=== PATIENT | female | born 1980 | race African-American/Black ===

== ENCOUNTER 2018-03-09 11:46 | Inpatient (IN) | payer OTHER ==
[2018-03-09 12:51] VITALS: BMI 27.8
--- NOTE | 2018-03-09 14:06 | HP ---
CIWA Score Nausea/Vomitin-No Nausea/No Vomiting Muscle Tremors: 2 Anxiety: 4-Mod. Anxious/Guarded Agitation: 4-Moderately Restless Paroxysmal Sweats: No Perspiration Orientation: 2-Disoriented Date<2 days Tacttile Disturbances: 0-None Auditory Disturbances: 0-None Visual Disturbances: 0-None Headache: 0-None Present CIWA-Ar Total Score: 12 - Admission Criteria OASAS Guidelines: Admission for Medically Managed Detox: Requires at least one of the followin. CIWA greater than 12 2. Seizures within the past 24 hours 3. Delirium tremens within the past 24 hours 4. Hallucinations within the past 24 hours 5. Acute intervention needed for co occurring medical disorder 6. Acute intervention needed for co occurring psychiatric disorder 7. Severe withdrawal that cannot be handled at a lower level of care (continued vomiting, continued diarrhea, abnormal vital signs) requiring intravenous medication and/or fluids 8. Admission ROS [facility] Chief Complaint: ETOH WITHDRAWAL AND COCAINE DEPENDENCE. Allergies/Adverse Reactions: Allergies Allergy/AdvReac Type Severity Reaction Status Date / Time aspirin Allergy Verified 03/09/18 13:55 latex Allergy Verified 03/09/18 13:55 peanut Allergy Verified 03/09/18 13:55 History of Present Illness: PATIENT PRESENTS WITH ETOH WITHDRAWAL SX AND H/O COCAINE DEPENDENCE. PATIENT STARTED DRINKING AT AGE 22, DRINKS UP TO 2 BOTTLES WINE DAILY. LAST DRINK LAST NIGHT. PATIENT LONGEST PERIOD OF SOBRIETY 6 MONTHS. PATIENT REPORTS BINGE DRINKING. DENIES SEIZURES, FALLS AND BLACKOUTS. PATIENT ALSO SMOKES CRACK/ COCAINE, LAST TIME SHE SMOKED WAS 3 WEEKS AGO BUT REPORTS SHE BINGES FOR DAYS WHEN SHE DOES SMOKE. UDS +BZO PATIENT WENT TO ER AT [facility] LAST NIGHT. PMH INCLUDES BIPOLAR DISORDER, HTN AND ANXIETY. DENIES SI/HI TODAY. + SUICIDE ATTEMPT 3 WEEKS AGO- CUTTING WRISTS. Exam Limitations: No Limitations - Ebola screening Have you traveled outside of the country in the last 21 days: No (N) Have you had contact with anyone from an Ebola affected area: No Have you been sick,other than usual withdrawal symptoms: No Do you have a fever: No - Review of Systems Constitutional: Chills EENT: reports: Tearing, Nose Congestion Respiratory: reports: Cough (DRY COUGH) Cardiac: reports: No Symptoms Reported GI: reports: Poor Fluid Intake : reports: No Symptoms Reported Musculoskeletal: reports: Back Pain, Muscle Pain Integumentary: reports: No Symptoms Reported Neuro: reports: Tremors Endocrine: reports: No Symptoms Reported Hematology: reports: Anemia Psychiatric: reports: Anxious (UNSURE OF DATE.), Depressed Patient History - Patient Medical History Hx Anemia: Yes Hx Asthma: Yes Hx Chronic Obstructive Pulmonary Disease (COPD): No Hx Cancer: No Hx Cardiac Disorders: No Hx Congestive Heart Failure: No Hx Hypertension: Yes Hx Hypercholesterolemia: No Hx Pacemaker: No HX Cerebrovascular Accident: No Hx Seizures: No Hx Dementia: No Hx Diabetes: No Hx Gastrointestinal Disorders: No Hx Liver Disease: No Hx Genitourinary Disorders: No Hx Sexually Transmitted Disorders: No Hx Renal Disease (ESRD): No Hx Thyroid Disease: No Hx Human Immunodeficiency Virus (HIV): No Hx Hepatitis C: No Hx Depression: Yes Hx Suicide Attempt: Yes (3 WEEKS AGO BY CUTTING WRISTS) Hx Bipolar Disorder: Yes Hx Schizophrenia: No - Patient Surgical History Past Surgical History: Yes Hx Abdominal Surgery: Yes ( GASTRIC BYPASS 2013) Other Surgical History: TONSILLECTOMY Anesthesia Reaction: No - PPD History Previous Implant?: No Implanted On Prior R Admission?: No PPD to be Administered?: Yes - Reproductive History Patient is a Female of Child Bearing Age (11 -55 yrs old): Yes Patient : No - Smoking Cessation Smoking history: Current every day smoker Have you smoked in the past 12 months: Yes Aproximately how many cigarettes per day: 2 Hx Chewing Tobacco Use: No Initiated information on smoking cessation: Yes 'Breaking Loose' booklet given: 03/09/18 - Substance & Tx. History Hx Alcohol Use: Yes Hx Substance Use: Yes Substance Use Type: Alcohol, Cocaine Hx Substance Use Treatment: No - Substances Abused Alcohol Route: Oral Frequency: Daily Amount used: 1 BOTTLE OF WINE Age of first use: 15 Date of Last Use: 03/09/18 Cocaine Route: Smoking Frequency: 1-3 times last 30 days Amount used: VARIES Age of first use: 36 Date of Last Use: 02/17/18 Family Disease History - Family Disease History Family Disease History: Diabetes: Mother, Heart Disease: Father Admission Physical Exam BHS - Vital Signs Vital Signs: Vital Signs - 24 hr 03/09/18 12:48 Temperature 96 F L Pulse Rate 86 Respiratory 20 Rate Blood Pressure 165/106 H - Physical General Appearance: Yes: No Apparent Distress, Nourished, Appropriately Dressed , Tremorous, Anxious HEENTM: Yes: EOMI, Hearing grossly Normal, Normocephalic, Normal Voice, SHANTI, Pharynx Normal, Nasal Congestion Respiratory: Yes: Chest Non-Tender, Lungs Clear, Normal Breath Sounds, No Respiratory Distress, No Accessory Muscle Use Neck: Yes: No masses,lesions,Nodules, Supple, Trachea in good position Breast: Yes: Breast Exam Deferred Cardiology: Yes: Regular Rhythm, Regular Rate, S1, S2 Abdominal: Yes: Normal Bowel Sounds, Non Tender, Soft Genitourinary: Yes: Within Normal Limits Back: Yes: Normal Inspection, Muscle Spasm Musculoskeletal: Yes: full range of Motion, Gait Steady, Muscle Pain Extremities: Yes: Normal Inspection, Normal Range of Motion, Non-Tender, Tremors Neurological: Yes: branch chief II-XII NML intact, Alert, Motor Strength 5/5, Disoriented (UNSURE OF DATE), Depressed Affect Integumentary: Yes: Normal Color, Dry, Warm Lymphatic: Yes: Within Normal Limits - Diagnostic (1) Alcohol dependence with uncomplicated withdrawal Current Visit: Yes Status: Acute (2) Cocaine dependence Current Visit: Yes Status: Chronic Qualifiers: Substance use status: uncomplicated Qualified Code(s): F14.20 - Cocaine dependence, uncomplicated (3) Bipolar disorder Current Visit: Yes Status: Suspected Qualifiers: Current episode severity: unspecified (4) HTN (hypertension) Current Visit: Yes Status: Chronic Qualifiers: Hypertension type: unspecified Qualified Code(s): I10 - Essential (primary ) hypertension Cleared for Admission [facility] - Detox or Rehab [facility] Level of Care: Medically Managed Detox Regimen/Protocol: Librium [facility] Breath Alcohol Content Breath Alcohol Content: 0.054 Urine Pregancy Test - Result Urine Test Results: Negative- NO Line Present Urine Drug Screen - Results Drug Screen Negative: No Urine Drug Screen Results: BZO-Benzodiazepines
[2018-03-09] MEDS ORDERED: guaiFENesin/D-METHORPHAN HB 10 ML UNIT-DOSE CUPS PO PRN (14:17)
[2018-03-09] MEDS ORDERED: IBUPROFEN 400 MG TABLET (FP) PO PRN (14:17)
[2018-03-09] MEDS ORDERED: MAGNESIUM HYDROX 2400MG/30ML ORAL SUSPENSION 30 ML CUP PO PRN (14:17)
[2018-03-09] MEDS ORDERED: ACETAMINOPHEN 325 MG TABLET (FP) PO PRN ×2 (14:17→16:58)
[2018-03-09] MEDS ORDERED: MENTHOL/PHENOL 1 EACH UD MM PRN (14:17)
[2018-03-09] MEDS ORDERED: P-EPHED 60MG/TRIPROLIDI 2.5MG TABLET PO PRN (14:17)
[2018-03-09] MEDS ORDERED: LOPERAMIDE HCL 2 MG CAPSULE PO PRN (14:17)
[2018-03-09] MEDS ORDERED: MAGNESIUM CITRATE 300 ML BOTTLE PO PRN (14:17)
[2018-03-09] MEDS ORDERED: chlordiazePOXIDE HCL 25 MG CAPSULE PO PRN (14:20)
[2018-03-09] MEDS ORDERED: cloNIDine HCL 0.1 MG TABLET PO ONE (17:00)
[2018-03-09] MEDS: chlordiazePOXIDE HCL 25 MG CAPSULE PO SCH ×2 (20:22→22:18)
[2018-03-09] MEDS: THIAMINE HCL 100 MG TABLET (FP) PO SCH (22:18)
[2018-03-09 23:05] LABS: URINE APPEARANCE CLEAR; URINE BILIRUBIN NEGATIVE (<2.0 mg/dL); URINE COLOR LTYELLOW; URINE GLUCOSE (UA) NEGATIVE (NEGATIVE); URINE KETONE NEGATIVE (NEGATIVE); URINE LEUK ESTERASE NEGATIVE (NEGATIVE); URINE NITRITE NEGATIVE (NEGATIVE); URINE PROTEIN NEGATIVE (NEGATIVE); URINE UROBILINOGEN NEGATIVE mg/dL (0.2-1.0)
[2018-03-10] MEDS: chlordiazePOXIDE HCL 25 MG CAPSULE PO SCH ×4 (06:02→22:05)
[2018-03-10] MEDS: PRENATAL VITAMINS W/ FOLIC ACID TABLET (FP) PO SCH (10:39)
[2018-03-10] MEDS ORDERED: ALBUTEROL SO4 8 GM HFA INHALER IH PRN (10:49)
[2018-03-10] MEDS ORDERED: LOSARTAN POTASSIUM 50 MG TABLET (FP) PO ONE (10:50)
--- NOTE | 2018-03-10 10:54 | PN ---
S CIWA - CIWA Score Nausea/Vomitin-No Nausea/No Vomiting Muscle Tremors: 4-Moderate,w/Arms Extend Anxiety: 4-Mod. Anxious/Guarded Agitation: 4-Moderately Restless Paroxysmal Sweats: 3 Orientation: 0-Oriented Tacttile Disturbances: 0-None Auditory Disturbances: 0-None Visual Disturbances: 0-None Headache: 0-None Present CIWA-Ar Total Score: 15 BHS Progress Note (SOAP) Subjective: shakes sweats irritable agitation body aches interrupted sleep nasal congestion Objective: 03/10/18 10:52 Vital Signs Temperature 97.0 F L 03/10/18 09:54 Pulse Rate 122 H 03/10/18 09:54 Respiratory Rate 16 03/10/18 09:54 Blood Pressure 142/94 03/10/18 09:54 O2 Sat by Pulse Oximetry (%) Laboratory Tests 03/09/18 22:30 Urine Color Ltyellow Urine Appearance Clear Urine pH 5.0 Ur Specific [place] 1.011 Urine Protein Negative Urine Glucose (UA) Negative Urine Ketones Negative Urine Blood Negative Urine Nitrite Negative Urine Bilirubin Negative Urine Urobilinogen Negative Ur Leukocyte Esterase Negative rest of labs pending aaox3 ambulating no acute distress Assessment: 03/10/18 10:52 withdrawal sx Plan: continue detox increase fluids flonase spray losartan 100mg daily
[2018-03-10 10:56] LABS: HEMATOCRIT 33.4 % (32.4-45.2); HEMOGLOBIN 11.3 GM/dL (10.7-15.3); MCH 31.7 pg (25.7-33.7); MCHC 33.7 g/dl (32.0-36.0); MEAN PLT VOLUME 7.8 fl (7.5-11.1); PLATELET COUNT 346 K/MM3 (134-434); RBC 3.55 M/mm3 (3.60-5.2); RDW 14.6 % (11.6-15.6); WHITE BLOOD COUNT 7.6 K/mm3 (4.0-10.0)
[2018-03-10 11:00] LABS: ALK PHOS 81 U/L (45-117); ANION GAP 9 MMOL/L (8-16); BILIRUBIN,TOTAL 0.4 mg/dL (0.2-1); BLOOD UREA NITROGEN 12 mg/dL (7-18); CALCIUM 8.2 mg/dL (8.5-10.1); CHLORIDE 109 mmol/L (98-107); CO2 24 mmol/L (21-32); CREATININE 0.7 mg/dL (0.55-1.3); GLUCOSE,RANDOM 62 mg/dL (74-106); POTASSIUM 3.9 mmol/L (3.5-5.1); SGOT/AST 14 U/L (15-37); SGPT/ALT 19 U/L (13-61); SODIUM 141 mmol/L (136-145)
--- NOTE | 2018-03-10 11:38 | CONSULT ---
[facility] Psychiatric Consult - Data Date of interview: 03/10/18 Admission source: [facility] Identifying data: Patient is a 37 year old single female, without children, unemployed, and currently residing with her mother. This is patient's first admission to detox at [facility]. Patient admitted to for alcohol dependence. Substance Abuse History: Smoking Cessation. Smoking history: Current every day smoker. Have you smoked in the past 12 months: Yes. Aproximately how many cigarettes per day: 2. Hx Chewing Tobacco Use: No. Initiated information on smoking cessation: Yes. 'Breaking Loose' booklet given: 03/09/18. - Substance & Tx. History. Hx Alcohol Use: Yes. Hx Substance Use: Yes. Substance Use Type : Alcohol, Cocaine. Hx Substance Use Treatment: No. - Substances Abused. Alcohol. Route: Oral. Frequency: Daily. Amount used: 1 BOTTLE OF WINE. Age of first use: 15. Date of Last Use: 03/09/18. Cocaine. Route: Smoking. Frequency: 1-3 times last 30 days. Amount used: VARIES. Age of first use: 36. Date of Last Use: 02/17/18 Medical History: Anemia, asthma, hypertersion Psychiatric History: Patient's first psychiatric contact was as a [age] year old. States she saw a psychiatrist with her dad and family due to her father's history of alcohol abuse. Ms. Chavez first psychiatric hospitalization was as a 13 year old at [facility] after a suicide attempt. As an adult, she has been hospitalized at [facility], most recently in August of 2016 secondary to a suicide attempt. Ms. Chavez reports a total of three suicide attempts by hanging self, self mutilation, and running onto incoming traffic. Self diagnosis of Bipolar disorder. Ms. Chavez was receiving outpatient psychiatric care by Dr. Schulz at the [facility] outpatient clinic but treatment was discontined after patient relocated to [facility]. She now plans on returning to [facility] outpatient clinic as she is currently residing with her mother in the [place], [place]. She was prescribed lexapro 10mg + Abilify 10mg. At present, she reports feeling sad. Patient denies thoughts or urges to hurt self or others. Physical/Sexual Abuse/Trauma History: denies. Mental Status Exam - Mental Status Exam Alert and Oriented to: Time, Place, Person Cognitive Function: Good Patient Appearance: Well Groomed Mood: Sad Affect: Mood Congruent Patient Behavior: Appropriate, Cooperative Speech Pattern: Appropriate Voice Loudness: Normal Thought Process: Intact, Goal Oriented Thought Disorder: Not Present Hallucinations: Denies Suicidal Ideation: Denies Homicidal Ideation: Denies Insight/Judgement: Poor Sleep: Fair Appetite: Fair Muscle strength/Tone: Normal Gait/Station: Normal Psychiatric Findings - Problem List ([place] 1, 2,3) (1) Alcohol dependence with uncomplicated withdrawal Current Visit: Yes Status: Acute (2) Bipolar disorder Current Visit: Yes Status: Chronic Qualifiers: Current episode severity: unspecified (3) Substance induced mood disorder Current Visit: Yes Status: Acute - Initial Treatment Plan Initial Treatment Plan: Psychoeducation provided. Detoxification in progress. Will order Lexapro 10mg + Abilify 10mg. Benefits and side effects discussed. Verbal consent given.
[2018-03-10] MEDS: FLUTICASONE PROP 0.05% 16 GM NASAL SPRAY NS SCH ×2 (11:56→22:05)
[2018-03-10] MEDS: ARIPiprazole 10 MG TABLET PO SCH (12:02)
[2018-03-10] MEDS: ESCITALOPRAM OXALATE 10 MG TABLET (FP) PO SCH (12:02)
--- NOTE | 2018-03-10 17:04 | EKG ---
Test Reason : Blood Pressure : / mmHG Vent. Rate : 095 BPM Atrial Rate : 095 BPM P-R Int : 144 ms QRS Dur : 084 ms QT Int : 362 ms P-R-T Axes : -07 012 025 degrees QTc Int : 454 ms NORMAL SINUS RHYTHM NORMAL ECG NO PREVIOUS ECGS AVAILABLE Confirmed by MD SANDEEP, BEN ([id number]) on 03/10/2018 5:04:40 PM Referred By: Confirmed By:BEN HOPKINS MD
[2018-03-10] MEDS: MAG HYDROX/AL HYDROX/SIMETH 30 ML UNIT-DOSE CUP PO PRN (17:43)
[2018-03-10] MEDS: MELATONIN 5 MG TABLETS PO PRN (22:05)
[2018-03-10] MEDS: THIAMINE HCL 100 MG TABLET (FP) PO SCH (22:05)
[2018-03-10] MEDS: hydrOXYzine PAMOATE 50 MG CAPSULE (FP) PO PRN (22:05)
[2018-03-11] MEDS: chlordiazePOXIDE HCL 25 MG CAPSULE PO SCH ×2 (06:29→10:37)
[2018-03-11] MEDS: PRENATAL VITAMINS W/ FOLIC ACID TABLET (FP) PO SCH (10:36)
[2018-03-11] MEDS: ARIPiprazole 10 MG TABLET PO SCH (10:37)
[2018-03-11] MEDS: FLUTICASONE PROP 0.05% 16 GM NASAL SPRAY NS SCH ×2 (10:37→22:09)
[2018-03-11] MEDS: LOSARTAN POTASSIUM 50 MG TABLET (FP) PO SCH (10:37)
[2018-03-11] MEDS: ESCITALOPRAM OXALATE 10 MG TABLET (FP) PO SCH (10:37)
--- NOTE | 2018-03-11 10:40 | PN ---
[facility] CIWA - CIWA Score Nausea/Vomitin-No Nausea/No Vomiting Muscle Tremors: 3 Anxiety: 3 Agitation: 2 Paroxysmal Sweats: 2 Orientation: 0-Oriented Tacttile Disturbances: 0-None Auditory Disturbances: 0-None Visual Disturbances: 0-None Headache: 0-None Present CIWA-Ar Total Score: 10 S Progress Note (SOAP) Subjective: tired body aches interrupted sleep sweats Objective: 03/11/18 10:38 Vital Signs Temperature 97.3 F L 03/11/18 09:27 Pulse Rate 95 H 03/11/18 09:27 Respiratory Rate 137 H 03/11/18 09:27 Blood Pressure 131/93 03/11/18 09:27 O2 Sat by Pulse Oximetry (%) Laboratory Tests 03/09/18 03/10/18 03/10/18 22:30 07:00 07:00 WBC 7.6 RBC 3.55 L Hgb 11.3 Hct 33.4 MCV 94.0 MCH 31.7 MCHC 33.7 RDW 14.6 Plt Count 346 MPV 7.8 Sodium 141 Potassium 3.9 Chloride 109 H Carbon Dioxide 24 Anion Gap 9 BUN 12 Creatinine 0.7 Creat Clearance w eGFR > 60 Random Glucose 62 L Calcium 8.2 L Total Bilirubin 0.4 AST 14 L ALT 19 Alkaline Phosphatase 81 Total Protein 6.0 L Albumin 3.0 L Urine Color Ltyellow Urine Appearance Clear Urine pH 5.0 Ur Specific [place] 1.011 Urine Protein Negative Urine Glucose (UA) Negative Urine Ketones Negative Urine Blood Negative Urine Nitrite Negative Urine Bilirubin Negative Urine Urobilinogen Negative Ur Leukocyte Esterase Negative RPR Titer HIV 1&2 Antibody Screen HIV P24 Antigen 03/10/18 03/10/18 07:00 07:00 WBC RBC Hgb Hct MCV MCH MCHC RDW Plt Count MPV Sodium Potassium Chloride Carbon Dioxide Anion Gap BUN Creatinine Creat Clearance w eGFR Random Glucose Calcium Total Bilirubin AST ALT Alkaline Phosphatase Total Protein Albumin Urine Color Urine Appearance Urine pH Ur Specific [place] Urine Protein Urine Glucose (UA) Urine Ketones Urine Blood Urine Nitrite Urine Bilirubin Urine Urobilinogen Ur Leukocyte Esterase RPR Titer Nonreactive HIV 1&2 Antibody Screen Negative HIV P24 Antigen Negative aaox3 ambulating no acute distress Assessment: 03/11/18 10:39 withdrawal sx Plan: continue detox increase fluids
[2018-03-11] MEDS: chlordiazePOXIDE 5 MG CAPSULE PO SCH ×2 (16:52→22:10)
[2018-03-11] MEDS: ACETAMINOPHEN 325 MG TABLET (FP) PO PRN (19:24)
[2018-03-11] MEDS: THIAMINE HCL 100 MG TABLET (FP) PO SCH (22:09)
[2018-03-11] MEDS: hydrOXYzine PAMOATE 50 MG CAPSULE (FP) PO PRN (22:10)
[2018-03-11] MEDS: MELATONIN 5 MG TABLETS PO PRN (22:10)
[2018-03-12] MEDS: chlordiazePOXIDE 5 MG CAPSULE PO SCH ×2 (06:04→10:01)
[2018-03-12] MEDS: LOSARTAN POTASSIUM 50 MG TABLET (FP) PO SCH (10:01)
[2018-03-12] MEDS: ARIPiprazole 10 MG TABLET PO SCH (10:01)
[2018-03-12] MEDS: PRENATAL VITAMINS W/ FOLIC ACID TABLET (FP) PO SCH (10:01)
[2018-03-12] MEDS: FLUTICASONE PROP 0.05% 16 GM NASAL SPRAY NS SCH ×2 (10:02→22:02)
[2018-03-12] MEDS: ESCITALOPRAM OXALATE 10 MG TABLET (FP) PO SCH (10:02)
--- NOTE | 2018-03-12 11:06 | PN ---
BHS Progress Note (SOAP) Subjective: tired Objective: 03/12/18 11:06 Vital Signs Temperature 97.3 F L 03/12/18 09:17 Pulse Rate 94 H 03/12/18 09:17 Respiratory Rate 16 03/12/18 09:17 Blood Pressure 132/70 03/12/18 09:17 O2 Sat by Pulse Oximetry (%) aaox3 ambulating no acute distress Assessment: 03/12/18 11:06 mild withdrawal sx Plan: continue detox increase fluids d/c in am
[2018-03-12] MEDS: ACETAMINOPHEN 325 MG TABLET (FP) PO PRN ×2 (11:08→20:53)
[2018-03-12] MEDS: chlordiazePOXIDE HCL 10 MG CAPSULE PO SCH ×2 (16:54→22:03)
[2018-03-12] MEDS: MAG HYDROX/AL HYDROX/SIMETH 30 ML UNIT-DOSE CUP PO PRN (20:54)
[2018-03-12] MEDS: THIAMINE HCL 100 MG TABLET (FP) PO SCH (22:03)
[2018-03-12] MEDS: MELATONIN 5 MG TABLETS PO PRN (22:03)
[2018-03-12] MEDS: hydrOXYzine PAMOATE 50 MG CAPSULE (FP) PO PRN (22:03)
[2018-03-13] MEDS: chlordiazePOXIDE HCL 10 MG CAPSULE PO SCH ×2 (05:43→10:40)
[2018-03-13 09:59] VITALS: BP 151/98; PULSE 94; TEMP 96.8
--- NOTE | 2018-03-13 10:16 | DS ---
[facility] Detox Discharge Summary Admission Date: 03/09/18 Discharge Date: 03/13/18 - History Present History: Alcohol Dependence, Cocaine Dependence - Physical Exam Results Vital Signs: Vital Signs Temperature 96.8 F L 03/13/18 09:58 Pulse Rate 94 H 03/13/18 09:58 Respiratory Rate 18 03/13/18 09:58 Blood Pressure 151/98 03/13/18 09:58 O2 Sat by Pulse Oximetry (%) - Treatment Hospital Course: Detox Protocol Followed, Detoxed Safely, Responded well, Discharged Condition Good, Rehab Referral Accepted - Medication Discharge Medications: Ambulatory Orders Albuterol Sulfate Inhaler - [Ventolin Hfa Inhaler -] 2 inh PO Q6H PRN 03/09/18 Ferrous Sulfate 325 mg PO DAILY 03/09/18 Escitalopram Oxalate [Lexapro -] 10 mg PO DAILY 03/10/18 Aripiprazole [Abilify] 10 mg PO DAILY #30 tablet 03/12/18 Escitalopram Oxalate [Lexapro -] 10 mg PO DAILY #30 tablet 03/12/18 - Diagnosis (1) Alcohol dependence with uncomplicated withdrawal Current Visit: Yes Status: Acute (2) Substance induced mood disorder Current Visit: Yes Status: Acute (3) Bipolar disorder Current Visit: Yes Status: Chronic Qualifiers: Current episode severity: unspecified (4) Cocaine dependence Current Visit: Yes Status: Chronic Qualifiers: Substance use status: uncomplicated Qualified Code(s): F14.20 - Cocaine dependence, uncomplicated (5) HTN (hypertension) Current Visit: Yes Status: Chronic Qualifiers: Hypertension type: unspecified Qualified Code(s): I10 - Essential (primary ) hypertension - AMA Did Patient Leave Against Medical Advice: No (referred to [facility])
[2018-03-13] MEDS: ESCITALOPRAM OXALATE 10 MG TABLET (FP) PO SCH (10:39)
[2018-03-13] MEDS: ARIPiprazole 10 MG TABLET PO SCH (10:39)
[2018-03-13] MEDS: PRENATAL VITAMINS W/ FOLIC ACID TABLET (FP) PO SCH (10:39)
[2018-03-13] MEDS: LOSARTAN POTASSIUM 50 MG TABLET (FP) PO SCH (10:39)
[2018-03-13] MEDS: FLUTICASONE PROP 0.05% 16 GM NASAL SPRAY NS SCH (10:40)
== END 2018-03-13 11:40 | disposition home or self-care (01) | DRG 774 ==
LOC: YASAS 11:46 → Y6N 16:11
PROVIDERS: ADMIT Neuromusculoskeletal Medicine & OMM; ATTEND Neuromusculoskeletal Medicine & OMM
PROC: HZ2ZZZZ Detoxification Services for Substance Abuse Treatment (ICD-10-PCS; principal; 2018-03-09)
DX: F10.230 Alcohol dependence with withdrawal, uncomplicated (principal); F14.20 Cocaine dependence, uncomplicated; F19.24 Other psychoactive substance dependence with psychoactive substance-induced mood disorder; F31.9 Bipolar disorder, unspecified; I10 Essential (primary) hypertension; J45.909 Unspecified asthma, uncomplicated; D64.9 Anemia, unspecified; Z91.5 Personal history of self-harm
CPT/HCPCS: 36415; 80053; 81003; 85027; 86593; 87389; 93005; 93010; J0735

== ENCOUNTER 2018-06-02 15:18 | Inpatient (IN) | payer OTHER ==
[2018-06-02 15:50] VITALS: BP 161/70; PULSE 94; TEMP 96.6; BMI 27.6
--- NOTE | 2018-06-02 16:15 | HP ---
CIWA Score - Admission Criteria OASAS Guidelines: Admission for Medically Managed Detox: Requires at least one of the followin. CIWA greater than 12 2. Seizures within the past 24 hours 3. Delirium tremens within the past 24 hours 4. Hallucinations within the past 24 hours 5. Acute intervention needed for co occurring medical disorder 6. Acute intervention needed for co occurring psychiatric disorder 7. Severe withdrawal that cannot be handled at a lower level of care (continued vomiting, continued diarrhea, abnormal vital signs) requiring intravenous medication and/or fluids 8. Admission ROS [facility] Chief Complaint: Seeking rehab services. Allergies/Adverse Reactions: Allergies Allergy/AdvReac Type Severity Reaction Status Date / Time aspirin Allergy Verified 03/09/18 16:53 latex Allergy Verified 03/09/18 13:55 peanut Allergy Verified 03/09/18 13:55 ibuprofen AdvReac Verified 03/09/18 16:55 History of Present Illness: 37 y.o. woman with a history of cocaine dependence and alcohol abuse is here seeking rehab services. She completed detox here in 02/2018 and completed rehab at [facility] after. Exam Limitations: No Limitations - Ebola screening Have you traveled outside of the country in the last 21 days: No (N) Have you had contact with anyone from an Ebola affected area: No Do you have a fever: No - Review of Systems Constitutional: No Symptoms Reported EENT: reports: No Symptoms Reported Respiratory: reports: No Symptoms reported Cardiac: reports: No Symptoms Reported GI: reports: No Symptoms Reported : reports: No Symptoms Reported Musculoskeletal: reports: No Symptoms Reported Integumentary: reports: No Symptoms Reported Neuro: reports: Headache Endocrine: reports: No Symptoms Reported Hematology: reports: Anemia (SANDER) Psychiatric: reports: Anxious, Depressed Other Systems: Reviewed and Negative Patient History - Patient Medical History Hx Anemia: Yes Hx Asthma: Yes Hx Chronic Obstructive Pulmonary Disease (COPD): No Hx Cancer: No Hx Cardiac Disorders: No Hx Congestive Heart Failure: No Hx Hypertension: Yes Hx Hypercholesterolemia: No Hx Pacemaker: No HX Cerebrovascular Accident: No Hx Seizures: No Hx Dementia: No Hx Diabetes: No Hx Gastrointestinal Disorders: No Hx Liver Disease: No Hx Genitourinary Disorders: No Hx Sexually Transmitted Disorders: No Hx Renal Disease (ESRD): No Hx Thyroid Disease: No Hx Human Immunodeficiency Virus (HIV): No Hx Hepatitis C: No Hx Depression: Yes Hx Suicide Attempt: No (Denies suicidal and homicidal ideation; denies any suicide attempts) Hx Bipolar Disorder: Yes Hx Schizophrenia: No - Patient Surgical History Past Surgical History: Yes Hx Neurologic Surgery: No Hx Cataract Extraction: No Hx Cardiac Surgery: No Hx Lung Surgery: No Hx Breast Surgery: No Hx Breast Biopsy: No Hx Abdominal Surgery: Yes (GASTRIC BYPASS 2013, abdominoplasty 2016) Hx Appendectomy: No Hx Cholecystectomy: No Hx Genitourinary Surgery: No Hx Section: No Hx Orthopedic Surgery: No Other Surgical History: TONSILLECTOMY Anesthesia Reaction: No - PPD History Previous Implant?: Yes Documented Results: Negative w/proof Implanted On Prior [facility] Admission?: Yes Date: 03/11/18 Results: 0 PPD to be Administered?: No - Reproductive History Patient is a Female of Child Bearing Age (11 -55 yrs old): Yes Last Menstrual Period: 06/02/18 Patient : No - Smoking Cessation Smoking history: Current every day smoker Have you smoked in the past 12 months: Yes Aproximately how many cigarettes per day: 2 Hx Chewing Tobacco Use: No Initiated information on smoking cessation: Yes 'Breaking Loose' booklet given: 06/02/18 - Substance & Tx. History Hx Alcohol Use: Yes Hx Substance Use: Yes Substance Use Type: Alcohol, Cocaine Hx Substance Use Treatment: Yes (Detox completed at [facility] on 03/13/18. Rehab completed at [facility] 03/2018. ) - Substances abused Alcohol Substance route: Oral Frequency: 1-2 times per week Amount used: 2 glasses of wine Age of first use: 22 Date of last use: 06/02/18 Cocaine Substance route: Smoking Frequency: 3-6 times per week Amount used: $100 Age of first use: 36 Date of last use: 06/01/18 Family Disease History - Family Disease History Family Disease History: Diabetes: Mother, Heart Disease: Father Admission Physical Exam S - Vital Signs Vital Signs: Vital Signs - 24 hr 06/02/18 15:49 Temperature 96.6 F L Pulse Rate 94 H Respiratory 18 Rate Blood Pressure 161/70 - Physical General Appearance: Yes: No Apparent Distress, Nourished, Appropriately Dressed HEENTM: Yes: Hearing grossly Normal, Normal ENT Inspection, Normocephalic, Normal Voice Respiratory: Yes: Chest Non-Tender, Lungs Clear, Normal Breath Sounds, No Respiratory Distress, No Accessory Muscle Use Neck: Yes: No masses,lesions,Nodules, Trachea in good position Breast: Yes: Breast Exam Deferred Cardiology: Yes: Regular Rhythm, Regular Rate Abdominal: Yes: Normal Bowel Sounds, Non Tender Genitourinary: Yes: Other (No complaints reported) Back: Yes: Within Normal Limits, Normal Inspection Musculoskeletal: Yes: full range of Motion, Gait Steady Extremities: Yes: Normal Inspection, Normal Range of Motion, Non-Tender Neurological: Yes: Alert, Normal Mood/Affect, Normal Response Integumentary: Yes: Normal Color, Dry, Warm Lymphatic: Yes: Within Normal Limits - Diagnostic (1) Asthma Current Visit: Yes Status: Acute (2) Alcohol dependence with uncomplicated withdrawal Current Visit: Yes Status: Chronic (3) Cocaine dependence Current Visit: Yes Status: Chronic Qualifiers: Substance use status: uncomplicated Qualified Code(s): F14.20 - Cocaine dependence, uncomplicated (4) HTN (hypertension) Current Visit: Yes Status: Chronic Qualifiers: Hypertension type: unspecified Qualified Code(s): I10 - Essential (primary ) hypertension (5) Nicotine dependence Current Visit: Yes Status: Chronic (6) SANDER (iron deficiency anemia) Current Visit: Yes Status: Chronic Cleared for Admission S - Detox or Rehab [facility] Level of Care: Observation Bed Detox Regimen/Protocol: Not Applicable Claeared for Rehab Admission: Yes Breathalyzer - Breathalyzer Breathalyzer: 0.031 POC Urine test - Test device test lot number: [id number] Expiration date: 06/17/19 - Control test control: Yes - Result Urine Test Results: Negative - NO line present Urine Drug Screen - Test Device Lot number: [id number] Expiration date: 01/17/20 - Control Is test valid?: Yes - Results Drug screen NEGATIVE: No Urine drug screen results: THC-Marijuana, KADEN-Cocaine, BZO-Benzodiazepines Inpatient Rehab Admission - Rehab Decision to Admit Inpatient rehab admission?: Yes - Initial Determination Are CD services needed?: Yes Free of communicable disease: Yes Not in need of hospitalization: Yes - Rehab Admission Criteria Previous failed treatment: Yes Poor recovery environment: Yes Comorbidities: Yes Lacks judgement: Yes Patient is meeting Inpatient Rehab admission criteria:: Yes
[2018-06-02] MEDS ORDERED: NICOTINE POLACRILEX 4 MG GUM BC PRN (16:24)
[2018-06-02] MEDS ORDERED: LOPERAMIDE HCL 2 MG CAPSULE PO PRN (16:24)
[2018-06-02] MEDS ORDERED: ALBUTEROL SO4 8 GM HFA INHALER IH PRN (16:24)
[2018-06-02] MEDS ORDERED: ACETAMINOPHEN 325 MG TABLET (FP) PO PRN (16:24)
[2018-06-02] MEDS ORDERED: MENTHOL/PHENOL 1 EACH UD MM PRN (16:24)
[2018-06-02] MEDS ORDERED: P-EPHED 60MG/TRIPROLIDI 2.5MG TABLET PO PRN (16:24)
[2018-06-02] MEDS ORDERED: hydrOXYzine PAMOATE 50 MG CAPSULE (FP) PO PRN (16:24)
[2018-06-02] MEDS ORDERED: MAGNESIUM HYDROX 2400MG/30ML ORAL SUSPENSION 30 ML CUP PO PRN (16:24)
[2018-06-02] MEDS ORDERED: MAG HYDROX/AL HYDROX/SIMETH 30 ML UNIT-DOSE CUP PO PRN (16:24)
[2018-06-02] MEDS ORDERED: guaiFENesin 200 MG/10 ML 10 ML UNIT-DOSE CUPS PO PRN (16:24)
[2018-06-02] MEDS ORDERED: MAGNESIUM CITRATE 300 ML BOTTLE PO PRN (16:24)
[2018-06-02] MEDS ORDERED: DOCUSATE SODIUM 100 MG CAPSULE (FP) PO PRN (16:28)
[2018-06-02] MEDS ORDERED: amLODIPine BESYLATE 10 MG TABLET (FP) PO SCH (17:30)
--- NOTE | 2018-06-02 18:28 | PN ---
[facility] Progress Note Note: Vital Signs Temperature 96.6 F L 06/02/18 15:49 Pulse Rate 94 H 06/02/18 15:49 Respiratory Rate 18 06/02/18 15:49 Blood Pressure 161/70 06/02/18 15:49 O2 Sat by Pulse Oximetry (%) Patient did not wait for provider, walked off the unit. Patient reported to ALYSSA Galeana that she did not like the environment and sharing a bathroom.
[2018-06-02] MEDS ORDERED: THIAMINE HCL 100 MG TABLET (FP) PO SCH (22:00)
[2018-06-02] MEDS ORDERED: MELATONIN 5 MG TABLETS PO PRN (22:00)
[2018-06-03] MEDS ORDERED: PRENATAL VITAMINS W/ FOLIC ACID TABLET (FP) PO SCH (10:00)
== END 2018-06-02 18:30 | disposition left against medical advice (07) | DRG 770 ==
LOC: YASAS 15:18 → Y3E 17:13
PROVIDERS: ADMIT Neuromusculoskeletal Medicine & OMM; ATTEND Neuromusculoskeletal Medicine & OMM
PROC: HZ42ZZZ Group Counseling for Substance Abuse Treatment, Cognitive-Behavioral (ICD-10-PCS; principal; 2018-06-02)
DX: F10.230 Alcohol dependence with withdrawal, uncomplicated (principal); F14.20 Cocaine dependence, uncomplicated; F17.210 Nicotine dependence, cigarettes, uncomplicated; F31.9 Bipolar disorder, unspecified; I10 Essential (primary) hypertension; J45.909 Unspecified asthma, uncomplicated; D50.9 Iron deficiency anemia, unspecified; Z88.6 Allergy status to analgesic agent; Z91.040 Latex allergy status; Z91.010 Allergy to peanuts

== ENCOUNTER 2021-01-28 10:31 | Inpatient (IN) | payer OTHER ==
[2021-01-28 11:53] VITALS: BMI 28.4
[2021-01-28] MEDS ORDERED: MENTHOL/PHENOL 1 EACH UD MM PRN (12:08)
[2021-01-28] MEDS ORDERED: MAG HYDROX/AL HYDROX/SIMETH 30 ML UNIT-DOSE CUP PO PRN (12:08)
[2021-01-28] MEDS ORDERED: MAGNESIUM HYDROX 2400MG/30ML ORAL SUSPENSION 30 ML CUP PO PRN (12:08)
[2021-01-28] MEDS ORDERED: ONDANSETRON *ODT* 4 MG TABLET SL PRN (12:08)
[2021-01-28] MEDS ORDERED: ACETAMINOPHEN 325 MG TABLET (FP) PO PRN (12:08)
[2021-01-28] MEDS ORDERED: MAGNESIUM CITRATE 300 ML BOTTLE PO PRN (12:08)
[2021-01-28] MEDS ORDERED: P-EPHED 60MG/TRIPROLIDI 2.5MG TABLET PO PRN (12:08)
[2021-01-28] MEDS ORDERED: cloNIDine HCL 0.1 MG TABLET PO ONE ×2 (12:10→22:43)
[2021-01-28] MEDS ORDERED: cloNIDine HCL 0.1 MG TABLET ONE (12:20)
[2021-01-28] MEDS: hydrOXYzine PAMOATE 25 MG CAPSULE (FP) PO PRN (22:27)
[2021-01-28] MEDS: THIAMINE HCL 100 MG TABLET (FP) PO SCH (22:27)
[2021-01-28] MEDS: METHOCARBAMOL 500 MG TABLET PO PRN (22:27)
[2021-01-28] MEDS: MELATONIN 5 MG TABLETS PO SCH (22:27)
[2021-01-28] MEDS ORDERED: ALBUTEROL SO4 HFA INHALER IH ONE (22:50)
[2021-01-29] MEDS: hydrOXYzine PAMOATE 25 MG CAPSULE (FP) PO PRN ×3 (06:17→22:34)
[2021-01-29] MEDS: METHOCARBAMOL 500 MG TABLET PO PRN ×2 (06:17→14:26)
[2021-01-29] MEDS: ACETAMINOPHEN 325 MG TABLET (FP) PO PRN (06:19)
[2021-01-29] MEDS ORDERED: cloNIDine HCL 0.1 MG TABLET PO ONE (08:00)
[2021-01-29] MEDS ORDERED: methaDONE HCL 10 MG TABLET (FOR DETOX USE ONLY) PO ONE (08:45)
[2021-01-29] MEDS ORDERED: ALBUTEROL SO4 HFA INHALER IH PRN (08:46)
[2021-01-29] MEDS ORDERED: TRIMETHOBENZAMIDE HCL 200MG/2ML INJ IM PRN (08:50)
[2021-01-29 10:46] LABS: HEMATOCRIT 28.8 % (32.4-45.2); HEMOGLOBIN 9.3 GM/dL (10.7-15.3); MCHC 32.4 g/dl (32.0-36.0); MEAN CELL VOLUME 77.1 fl (80-96); MEAN PLT VOLUME 7.6 fl (7.5-11.1); PLATELET COUNT 432 10^3/uL (134-434); RBC 3.74 M/mm3 (3.60-5.2); RDW 17.6 % (11.6-15.6); WHITE BLOOD COUNT 6.2 K/mm3 (4.0-10.0)
[2021-01-29 10:48] LABS: ALBUMIN 2.7 g/dl (3.4-5.0); BLOOD UREA NITROGEN 5.8 mg/dL (7-18); CREATININE 0.8 mg/dL (0.55-1.3)
[2021-01-29 10:50] LABS: BILIRUBIN,TOTAL 0.3 mg/dL (0.2-1); TOT PROT 6.4 g/dl (6.4-8.2)
[2021-01-29 10:51] LABS: CALCIUM 8.9 mg/dL (8.5-10.1)
[2021-01-29] MEDS: PRENATAL VITAMINS W/ FOLIC ACID TABLET (FP) PO SCH (10:52)
[2021-01-29] MEDS: MELATONIN 5 MG TABLETS PO SCH (22:34)
[2021-01-29] MEDS: THIAMINE HCL 100 MG TABLET (FP) PO SCH (22:34)
[2021-01-30] MEDS: ALBUTEROL SO4 HFA INHALER IH PRN ×2 (04:22→10:21)
[2021-01-30] MEDS: hydrOXYzine PAMOATE 25 MG CAPSULE (FP) PO PRN ×4 (05:38→22:09)
[2021-01-30] MEDS ORDERED: cloNIDine HCL 0.1 MG TABLET PO ONE (05:40)
[2021-01-30] MEDS: METHOCARBAMOL 500 MG TABLET PO PRN (06:08)
[2021-01-30] MEDS ORDERED: methaDONE HCL 10 MG TABLET (FOR DETOX USE ONLY) ONE (09:39)
[2021-01-30] MEDS ORDERED: diazePAM 5 MG TABLET PO PRN (09:45)
[2021-01-30] MEDS: PRENATAL VITAMINS W/ FOLIC ACID TABLET (FP) PO SCH (10:22)
[2021-01-30] MEDS: amLODIPine BESYLATE 10 MG TABLET (FP) PO SCH (10:24)
[2021-01-30] MEDS: THIAMINE HCL 100 MG TABLET (FP) PO SCH (22:09)
[2021-01-30] MEDS: MELATONIN 5 MG TABLETS PO SCH (22:10)
[2021-01-31] MEDS ORDERED: cloNIDine HCL 0.1 MG TABLET PO ONE (07:54)
[2021-01-31] MEDS: hydrOXYzine PAMOATE 25 MG CAPSULE (FP) PO PRN ×2 (08:00→09:18)
[2021-01-31] MEDS: amLODIPine BESYLATE 10 MG TABLET (FP) PO SCH (09:18)
[2021-01-31] MEDS: PRENATAL VITAMINS W/ FOLIC ACID TABLET (FP) PO SCH (09:18)
[2021-01-31] MEDS: METHOCARBAMOL 500 MG TABLET PO PRN (09:18)
[2021-01-31] MEDS ORDERED: methaDONE HCL 10 MG TABLET (FOR DETOX USE ONLY) PO ONE (10:00)
[2021-01-31] MEDS: ARIPiprazole 10 MG TABLET PO SCH (10:40)
[2021-01-31] MEDS: LISINOPRIL 10 MG TABLET PO SCH (11:24)
[2021-02-01] MEDS: QUEtiapine FUMARATE 100 MG TABLET (FP) PO SCH ×2 (00:40→22:12)
[2021-02-01] MEDS: THIAMINE HCL 100 MG TABLET (FP) PO SCH ×2 (00:40→22:12)
[2021-02-01] MEDS ORDERED: methaDONE HCL 10 MG TABLET (FOR DETOX USE ONLY) ONE (09:10)
[2021-02-01] MEDS: ARIPiprazole 10 MG TABLET PO SCH (10:30)
[2021-02-01] MEDS: amLODIPine BESYLATE 10 MG TABLET (FP) PO SCH (10:31)
[2021-02-01] MEDS: PRENATAL VITAMINS W/ FOLIC ACID TABLET (FP) PO SCH (10:31)
[2021-02-01] MEDS: METHOCARBAMOL 500 MG TABLET PO PRN (10:32)
[2021-02-01] MEDS: LISINOPRIL 10 MG TABLET PO SCH (10:32)
[2021-02-01] MEDS: ACETAMINOPHEN 325 MG TABLET (FP) PO PRN (15:39)
[2021-02-01] MEDS: hydrOXYzine PAMOATE 25 MG CAPSULE (FP) PO PRN (18:01)
[2021-02-01] MEDS: FERROUS SO4 325 MG TABLET (FP) PO SCH (21:16)
[2021-02-01] MEDS: MELATONIN 5 MG TABLETS PO SCH (22:11)
[2021-02-02] MEDS: ARIPiprazole 10 MG TABLET PO SCH (09:47)
[2021-02-02] MEDS: hydrOXYzine PAMOATE 25 MG CAPSULE (FP) PO PRN ×3 (09:48→21:34)
[2021-02-02] MEDS: FERROUS SO4 325 MG TABLET (FP) PO SCH ×3 (09:48→18:23)
[2021-02-02] MEDS ORDERED: methaDONE HCL 10 MG TABLET (FOR DETOX USE ONLY) PO ONE (10:00)
[2021-02-02] MEDS: PRENATAL VITAMINS W/ FOLIC ACID TABLET (FP) PO SCH (10:03)
[2021-02-02] MEDS: METHOCARBAMOL 500 MG TABLET PO PRN ×2 (12:45→21:34)
[2021-02-02] MEDS: THIAMINE HCL 100 MG TABLET (FP) PO SCH (21:34)
[2021-02-02] MEDS: QUEtiapine FUMARATE 100 MG TABLET (FP) PO SCH (21:34)
[2021-02-03] MEDS: FERROUS SO4 325 MG TABLET (FP) PO SCH (07:00)
[2021-02-03 09:43] VITALS: BP 131/72; PULSE 79; TEMP 97.1
[2021-02-03] MEDS: ARIPiprazole 10 MG TABLET PO SCH (10:24)
[2021-02-03] MEDS: PRENATAL VITAMINS W/ FOLIC ACID TABLET (FP) PO SCH (10:25)
== END 2021-02-03 10:39 | disposition home or self-care (01) | DRG 773 ==
LOC: YASAS 10:31 → Y6N 12:15
PROVIDERS: ADMIT Allergy & Immunology; ATTEND Allergy & Immunology
PROC: HZ2ZZZZ Detoxification Services for Substance Abuse Treatment (ICD-10-PCS; principal; 2021-01-28)
DX: F11.23 Opioid dependence with withdrawal (principal); F11.220 Opioid dependence with intoxication, uncomplicated; F14.20 Cocaine dependence, uncomplicated; F12.20 Cannabis dependence, uncomplicated; F15.10 Other stimulant abuse, uncomplicated; F17.210 Nicotine dependence, cigarettes, uncomplicated; F19.24 Other psychoactive substance dependence with psychoactive substance-induced mood disorder; F19.282 Other psychoactive substance dependence with psychoactive substance-induced sleep disorder; F31.9 Bipolar disorder, unspecified; F43.10 Post-traumatic stress disorder, unspecified; I10 Essential (primary) hypertension; D50.9 Iron deficiency anemia, unspecified; J45.909 Unspecified asthma, uncomplicated; Z88.6 Allergy status to analgesic agent; Z91.010 Allergy to peanuts; Z91.011 Allergy to milk products; Z56.0 Unemployment, unspecified
CPT/HCPCS: 36415; 80053; 81025; 82607; 82746; 83540; 83550; 85027; 86780; C9803; J0735; U0003; U0005